=== PATIENT | male | born 1965 | race Caucasian/White ===

== ENCOUNTER 2020-12-22 00:48 | Observation (INO) | payer OTHER ==
[~2020-12-22] VITALS: Ht 162.6 cm; Wt 80.1 kg
[2020-12-22 03:16] LABS: HEMOGLOBIN 10.5 gm/dl (14.0-17.5); RED BLOOD COUNT 3.68 M/UL (4.20-5.50); WHITE BLOOD COUNT 9.5 K/UL (4.5-11.0)
[2020-12-22 03:37] LABS: BUN/CREATININE RATIO 13 (0-10)
[2020-12-22] MEDS ORDERED: LIORESAL TAB 1010 MG PO (11:27)
[2020-12-22] MEDS ORDERED: CLONIDINE HCL0.1 MG PO (11:28)
[2020-12-22] MEDS ORDERED: HYDROXYZINE HCL10 MG PO (11:29)
[2020-12-22] MEDS ORDERED: ZESTRIL20 MG PO (11:30)
[2020-12-22] MEDS ORDERED: MOBIC15 MG PO (11:31)
[2020-12-22] MEDS ORDERED: TOPROL XL100 MG PO (11:32)
[2020-12-22] MEDS ORDERED: FLOMAX 0.4 MG0.4 MG PO (11:32)
[2020-12-22] MEDS ORDERED: PAXIL20 MG PO (11:33)
[2020-12-22] MEDS ORDERED: ZANAFLEX4 MG PO (11:33)
[2020-12-22] MEDS ORDERED: BUPRENORPHIN-N1 EACH SL (11:36)
--- NOTE | 2020-12-22 15:23 | NUR ---
VERIFIED PATIENT SUBOXONE DOSE THROUGH [facility] IN [facility]. [phone]. TWO 8MG DOSES DAILY. MD PALM REORDERED MEDICATION.
[2020-12-23 09:13] LABS: HBSAG SCREEN Negative (Negative); HEP A AB, IGM Negative (Negative); HEP B CORE AB, IGM Negative (Negative); HEP C VIRUS AB 8.4 (0.0-0.9)
== END 2020-12-22 18:06 | disposition home or self-care (01) ==
LOC: PROG CARE 00:48
PROVIDERS: Internal Medicine; ADMIT Internal Medicine
DX: R00.1 Bradycardia, unspecified (principal); I10 Essential (primary) hypertension; I34.0 Nonrheumatic mitral (valve) insufficiency; N13.2 Hydronephrosis with renal and ureteral calculous obstruction; F19.10 Other psychoactive substance abuse, uncomplicated; R19.7 Diarrhea, unspecified; R55 Syncope and collapse; Z86.59 Personal history of other mental and behavioral disorders; Z79.899 Other long term (current) drug therapy; Z90.49 Acquired absence of other specified parts of digestive tract; Z88.5 Allergy status to narcotic agent; Z80.9 Family history of malignant neoplasm, unspecified; Z20.822 Contact with and (suspected) exposure to COVID-19
CPT/HCPCS: ECHO; 36415; 80048; 80074; 81001; 82550; 82553; 83036; 84439; 84443; 84484; 85025; 86140; 93005; 93306; 93880; 96374; G0378; G0379; J1885